=== PATIENT | female | born 1955 | race Caucasian/White ===

== ENCOUNTER → 2018-12-15 | Outpatient (CLI) | payer MEDICARE, OTHER ==
--- NOTE | 2018-12-15 10:39 | REP ---
Two-view chest: 12/15/2018. Indication: Sarcoidosis. Comparison: None. Findings: The lungs are clear. There is no pleural effusion or pneumothorax. Cardiomediastinal silhouette is unremarkable. Multilevel degenerative sequelae of the thoracic spine are noted. The patient is status post cholecystectomy. Impression: Clear lungs. No acute process. Electronically Signed by Mesfin Lopez DO 12/15/2018 10:30 A
== END ==
LOC: M SMT 09:58
PROVIDERS: ATTEND Internal Medicine Pulmonary Disease
DX: D86.1 Sarcoidosis of lymph nodes (principal); Z90.49 Acquired absence of other specified parts of digestive tract

== ENCOUNTER → 2019-01-27 | Outpatient (CLI) | payer MEDICARE, OTHER ==
[~2019-01-27] MED LIST: ACTO15TA22 PO; CALCTAB89 PO; CRES10TA PO; GLIP-163 PO; IBUP-1114 PO; LOSA25TA14 PO; PROAAER10 INH; PROTPAK PO; SYMB16INH INH; SYNT50TA PO; TACR0.1O4 TOP; TRIA1CR80 TOP
--- NOTE | 2019-01-28 00:52 | ECGEPIP ---
[facility] Test Date: 2019-01-27 Pat Name: JOSIAH RUIZ Department: Room: - Gender: Female Registered Medical Transcriptionist: CORY : 1955 Requested By: CINDY Ledezma Order Number: [id number] Reading MD: Hugo Yanez Measurements Intervals [place] Rate: 63 P: 47 CO: 192 QRS: 46 QRSD: 104 T: 46 QT: 439 QTc: 451 Interpretive Statements SINUS RHYTHM ST DEVIATION AND MODERATE T-WAVE ABNORMALITY, CONSIDER ANTERIOR ISCHEMIA NO PRIOR TRACING FOR COMPARISON Electronically Signed on 01-28-2019 0:52:14 EST by Hugo Yanez
== END ==
LOC: M EKG 08:01
PROVIDERS: ATTEND Anesthesiology
DX: Z01.818 Encounter for other preprocedural examination (principal); R03.0 Elevated blood-pressure reading, without diagnosis of hypertension

== ENCOUNTER 2019-02-01 09:31 | Day surgery (SDC) | payer MEDICARE, OTHER ==
[~2019-02-01] VITALS: Ht 165.1 cm; Wt 99.3 kg
[~2019-02-01 09:31] MED LIST changes: +LIDOCAINE 1% MDV 20ML VIAL SQ PRN; +LR 1,000 ML IV ONE; +ceFAZolin SOD 2 GM in IV 1 EA IV ONE
[2019-02-01] MEDS ORDERED: LIDOCAINE 2% INJ 100 MG/5 ML SDV (FOR ANES.) As Ordered ONE (09:44)
[2019-02-01] MEDS ORDERED: PROPOFOL 200 MG/20 ML VIAL As Ordered ONE (09:44)
[2019-02-01] MEDS ORDERED: MIDAZOLAM INJ 2 MG/2 ML VIAL (J2250) As Ordered ONE (09:44)
[2019-02-01] MEDS ORDERED: dexameTHASONE 4 MG/ML 1ML VIAL (J1100) As Ordered ONE (09:45)
[2019-02-01] MEDS ORDERED: ONDANSETRON 4MG/2ML VIAL (J2405) As Ordered ONE (09:45)
[2019-02-01] MEDS ORDERED: fentaNYL 100 MCG/2 ML INJECTION (J3010) As Ordered ONE ×2 (09:45→13:37)
[2019-02-01] MEDS ORDERED: BUPIVACAINE/EPIN 0.25% 30 ML VIAL As Ordered ONE (09:54)
[2019-02-01 10:10] LABS: HEMATOCRIT 29.4 % (36.0-47.0); HEMOGLOBIN 9.5 g/dl (12.0-15.5); MEAN CORPUSCULAR HEMOGLOBIN 27.9 pg (27.0-33.0); MEAN CORPUSCULAR HGB CONC 32.3 g/dl (32.0-36.5); MEAN CORPUSCULAR VOLUME 86.2 fl (80.0-96.0); PLATELET COUNT, AUTOMATED 242 10^3/uL (150-450); RED BLOOD COUNT 3.41 10^6/uL (4.00-5.40); WHITE BLOOD COUNT 5.6 10^3/uL (4.0-10.0)
[2019-02-01] MEDS ORDERED: ACETAMINOPHEN 1000MG 100ML IV BTL (OFIRMEV) (J0131 PER 10MG) As Ordered ONE (13:52)
[2019-02-01] MEDS ORDERED: METOCLOPRAMIDE INJ 10MG/2ML VIAL (J2765) As Ordered ONE (14:08)
[2019-02-01] MEDS ORDERED: PERCOCET 5MG/325MG TAB As Ordered ONE (14:29)
[2019-02-01] MEDS ORDERED: LR 1,000 ML IV SCH (14:45)
[2019-02-01] MEDS ORDERED: MORPHINE 2 MG/ML 1ML VIAL (J2270) IV PRN (14:45)
[2019-02-01] MEDS ORDERED: oxyCODONE 5MG TAB PO PRN ×2 (14:45)
[2019-02-01] MEDS ORDERED: ONDANSETRON 4MG/2ML VIAL (J2405) IV PRN (14:45)
[2019-02-01] MEDS ORDERED: PERCOCET 5MG/325MG TAB PO PRN (14:45)
[2019-02-01] MEDS ORDERED: METOCLOPRAMIDE INJ 10MG/2ML VIAL (J2765) IV PRN (14:45)
[2019-02-01] MEDS ORDERED: fentaNYL 100 MCG/2 ML INJECTION (J3010) IV PRN (14:45)
[2019-02-01 16:15] VITALS: BP 146/66
--- NOTE | 2019-02-01 19:34 | RO ---
DATE OF PROCEDURE: 02/01/2019 PREOPERATIVE DIAGNOSIS: Right knee medial meniscal tear. POSTOPERATIVE DIAGNOSIS: Right knee medial meniscal tear. PROCEDURE: Right knee medial partial meniscectomy along with extensive synovectomy and removal of loose body. SURGEON: Dr. Celestino Guillen ANESTHESIA: General. INDICATIONS: This 63-year-old female who has failed nonoperative management for medial meniscal tear with significant mechanical symptoms. We discussed the risks and benefits including but not limited to infection, damage to surrounding structures, incomplete relief especially with the underlying osteoarthritis. The patient is in agreement with this plan and wished to proceed. PREOPERATIVE ANTIBIOTICS: 2 grams of Ancef. COMPLICATIONS: None. WARE DRESSER: None. TOURNIQUET TIME: 34 minutes. BLOOD LOSS: Minimal. OPERATIVE DESCRIPTION: Patient was brought back to the OR in the supine position and underwent general anesthesia at which point the right leg was prepped and draped in the usual fashion. A time out was to confirm patient and surgery and once all in agreement we elevated the tourniquet up to 250 mmHg. We then made two stab incisions over the anterior medial and lateral portals. We investigated the suprapatellar pouch initially. We visualized stage 3-4 changes in the trochlea and the patella with 2 loose bodies in the suprapatellar pouch, using a pituitary removed each for about 1 cm in length x 0.5 cm. We debrided the loose cartilage within the trochlea at which point we turned out attention to the notch. ACL and PCL were found to be intact. We then did an extensive anterior medial and anterior lateral synovectomy in order to extend our visualization. We then identified the medial compartments. There is a large posterior medial meniscal tear of intrasubstance with a radial tear in the lateral aspect. This was debrided using combination of the shaver, straight biter and curve biter. Once the loose flaps were adequately debrided we were able to identify stage 3/4 changes of both femoral and tibial condyles. Once again we found loose body here about 1 cm x 0.5 cm in size. It looked to be sharing of the cartilage. We then turned our attention to the lateral compartment and found only stage 1+2 changes of both the femur and tibia. Intact lateral meniscus. At which point we checked both the medial and lateral gutters and I did not encounter any more loose bodies. We removed as much water as possible and closed the two portals with 3-0 Nylon. We dressed the wound with gauze and ABD and Kerlix and LANDEN. Tourniquet was let down and patient was awakened and taken to the postanesthesia care unit in stable condition. POSTOPERATIVE PLAN: Patient will be weightbearing and range of motion as soon as possible. She will take aspirin twice a day for DVT prophylaxis. We will see her back in 2 weeks for clinical reevaluation.
== END 2019-02-01 16:41 | disposition home or self-care (01) ==
LOC: M SDC 09:31
PROVIDERS: ATTEND Orthopaedic Surgery Hand Surgery
DX: M23.231 Derangement of other medial meniscus due to old tear or injury, right knee (principal); I10 Essential (primary) hypertension; E78.5 Hyperlipidemia, unspecified; E11.9 Type 2 diabetes mellitus without complications; E03.9 Hypothyroidism, unspecified; D64.9 Anemia, unspecified; Z79.84 Long term (current) use of oral hypoglycemic drugs; Z79.899 Other long term (current) drug therapy
CPT/HCPCS: 29881; 36415; 85027; J0131; J0690; J1100; J2250; J2405; J2765; J3010